=== PATIENT | female | born 1995 | race Caucasian/White ===

== ENCOUNTER 2025-04-22 05:08 | Emergency (ER) | payer OTHER, SELFPAY ==
[2025-04-22 05:24] VITALS: BP 113/67
--- NOTE | 2025-04-22 07:56 | ED.GENMED ---
History of Present Illness
General
Chief Complaint: Musculo-Skeletal Complaint
Source: patient
Exam Limitations: none
Time Seen by Provider: 04/22/25 07:49
History of Present Illness
History of Present Illness:
See MDM
Past History
Past History
ED Past Medical History: None
ED Past Surgical History: None
Social History
Tobacco: Non-smoker
Alcohol: None
Phy Exam
Physical Exam
Physical Exam:
See MDM
Course
Orders/Labs/Results
Orders:
Orders
04/22/25 05:33
Finger(s)/Thumb 2 View Lt [CR Finger(s)/thumb Min 2 Vw Lt] Urgent
Comment:
Reason For Exam: left ring finger injury
Indicate Which Finger:: Ring Finger
04/22/25 07:59
Oxycodone/Acetaminophen [Percocet 5/325] 1 tablet PO NOW STA
Vital Signs
Initial and Last Documented VS:
Initial Vital Signs
Temp Pulse Resp BP Pulse Ox
98.7 F 62 20 113/67 99
04/22/25 05:24 04/22/25 05:24 04/22/25 05:24 04/22/25 05:24 04/22/25 05:24
Last Documented Vital Signs
Temp Pulse Resp BP Pulse Ox
98.7 F 62 20 113/67 99
04/22/25 05:24 04/22/25 05:24 04/22/25 05:24 04/22/25 05:24 04/22/25 07:58
MDM/Problems Addressed
Differential Diagnosis Includes:
Note:
CHIEF COMPLAINT(S)
Finger injury.
HISTORY OF PRESENT ILLNESS
The patient is a 29-year-old female who presents with a finger injury sustained after dropping a 45-pound weight on her fingertip last night. The injury resulted in severe pain. The patient attempted to manage the discomfort by splinting the finger,
although she found applying pressure provided some relief. This morning, she noticed increased swelling and pain. Upon examination during an x-ray, there was a definitive fracture at the tip of the finger with a couple of small cracks observed. The
patient reported pain relief when pressure is applied between her fingers.
PHYSICAL EXAM
General: Alert, no acute distress.
Skin: Warm, dry.
Head: Normocephalic, atraumatic
Neck: Appears supple, trachea midline.
Eyes, Ears, Nose, Mouth, and Throat: Moist mucous membranes
Cardiovascular: No signs of cyanosis
Respiratory: Respirations are non-labored.
Abdomen: Non-distended
Musculoskeletal: Bruising and tenderness noted to left ring finger. Range of motion intact. Decree sensation grossly intact. Subungual hematoma noted
Neurological: No focal neurological deficit observed.
Psychiatric: Cooperative, appropriate mood and affect.
PLAN
- Small hole created in the fingertip to relieve pressure.
- Prescribe oxycodone for home use.
- Use splint for support.
- Educate on signs of infection and when to return to ER.
DIFFERENTIAL DIAGNOSIS
The Differential Diagnosis includes, in no particular order and is not limited to:
- Distal phalanx fracture
- Hematoma under the nailbed
- Soft tissue contusion
- Tendon injury
- Joint dislocation
- Ligament sprain
- Osteomyelitis (secondary to open fracture)
- Crush injury
- Subungual hematoma
- Septic arthritis
SUMMARY OF ENCOUNTER
The patient was evaluated for a finger injury caused by a dumbbell last night. Management included facilitating drainage to relieve pressure, prescribing oxycodone for pain, and advising on the continuation of splint use.
DISPOSITION
Discharge with instructions to return if symptoms worsen.
ASSESSMENT
Distal phalanx fracture with subungual hematoma.
EMERGENCY TREATMENTS ADMINISTERED
Oxycodone given for immediate pain relief.
MEDICATION RECONCILIATION
- Oxycodone prescribed for pain control upon discharge.
- Administered a dose in the emergency department for immediate relief.
MEDICAL DECISION MAKING
- Complexity of Data Reviewed: Chronic conditions affecting care not mentioned.
- Data:
- Category 1: Reviewed x-ray confirming distal phalanx fracture.
- Category 3: Discussion with patient about creating a small hole for drainage.
CRITICAL CARE TIME
I provided 10 minutes of critical care time. Due to a high probability of clinically significant discomfort that required my highest level of intervention to relieve pressure. This time included obtaining history, examining the patient, ordering and
reviewing radiological exams, and administration of emergency medication (oxycodone).
DIAGNOSIS
- S62.609A: Fracture of unspecified phalanx of unspecified finger, initial encounter for closed fracture.
- T79.A12A: Subungual hematoma, initial encounter.
SUMMARY OF ENCOUNTER
This patient presented with a left ring finger injury after a dumbbell fell on her nail bed, resulting in a subungual hematoma. The hematoma was successfully trephinated using cautery, which provided instant relief from pressure and pain. The finger
is neurologically intact. Splinting and return precautions were discussed with the patient. Pain medication was provided, and outpatient follow-up with an web design specialist was discussed.
DISPOSITION
Discharge.
ASSESSMENT
Subungual hematoma and possible distal phalanx fracture of the left ring finger.
EMERGENCY TREATMENTS ADMINISTERED
Trephination of the subungual hematoma with cautery.
PLAN
The patient was advised to continue using a splint for support and to monitor for signs of infection. A referral to an web design specialist was discussed for follow-up care.
PATIENT EDUCATION AND COUNSELING
The patient was educated on the importance of using a splint, recognizing signs of infection, and following up with an web design specialist if symptoms worsen or persist.
FOLLOW-UP INSTRUCTIONS
Follow up with an web design specialist as discussed for further evaluation and management of the finger injury.
MEDICATION RECONCILIATION
Prescribe pain medication, considering patient-specific factors, after reviewing the RxNorm options.
MEDICAL DECISION MAKING
- Number and Complexity of Problems Addressed: Chronic conditions affecting care were not mentioned. The differential diagnosis included distal phalanx fracture, hematoma under the nailbed, soft tissue contusion, and subungual hematoma, among others.
- Data:
Category 1: Reviewed the x-ray confirming the distal phalanx fracture.
Category 3: Discussion of management included plans for outpatient follow-up with orthopedics.
- Risk: Prescription medication was prescribed for pain management. Consideration of Admission/Observation: Escalation of care including admission/observation was considered given the complexity and risk of the patients presenting complaint, exam
findings, and/or their underlying comorbidities. However, ultimately I feel the patient is safe for outpatient management with close follow-up. Reasoning: Work-up reassuring, does not reveal any acute life/organ-threatening processes, patients
symptoms well controlled upon reevaluation, reexamination is reassuring, vitals are stable, patient agreeable with discharge, reliable for follow-up.
CRITICAL CARE TIME
I provided 10 minutes of critical care time. Due to a high probability of clinically significant discomfort that required my highest level of intervention to relieve pressure.
DIAGNOSIS
- S62.609A: Fracture of unspecified phalanx of unspecified finger, initial encounter for closed fracture.
- T79.A12A: Subungual hematoma, initial encounter.
*Pulse Oximetry
SaO2: 99
Oxygen Mode of Delivery: Room air
ED Attending Note
-
Portions of this chart may have been created with voice recognition software.� Occasional wrong word or��sound alike� substitutions may have occurred due to the inherent limitations of voice recognition software.
Discharge Plan
Departure
Patient Disposition: Home (Routine Discharge)
Date of Disposition: 04/22/25
Time of Disposition: 08:14
Patient with high blood pressure during this ER visit?: No
Discharge Problem:
Closed fracture of tuft of distal phalanx of finger, Subungual hematoma of fingernail
Prescriptions:
New
oxycodone 5 mg tablet
2.5 mg PO Q8H PRN (Reason: Pain) Qty: 7 0RF
Referrals:
Niels Irvin MD [Active, Orthopedics]
Harpreet Hanks DO [Family Provider, Family Practice]
Activity Restrictions/Additional Instructions:
Please return for any worsening symptoms.
You may return at any time if you have further concerns.
Please follow up with your doctor at the first available appointment, preferably this week.
Please make an appointment with the orthopedist.
Interventions
Interventions:
*General Assessment Last Done: 04/22/25 05:24
*Neglect/Abuse Screening Last Done: 04/22/25 05:24
*ED COVID-19 Vaccine History Last Done: 04/22/25 05:24
*ED Influenza Vaccine History Last Done: 04/22/25 05:24
*Risk Screen - Suicide (C-SSRS) Last Done: 04/22/25 05:24
Discharge Date and Time
Print Language: [id number]
[2025-04-22] MEDS: PERCOCET 5/325 1 TABLET PO (08:18)
== END 2025-04-22 08:25 | disposition home or self-care (01) ==
LOC: EMR 05:08
PROVIDERS: EMERGENCY PHYSICIAN Student in an Organized Health Care Education/Training Program; FAMILY PHYSICIAN Family Medicine
DX: S60.141A Contusion of right ring finger with damage to nail, initial encounter (principal); S62.635A Displaced fracture of distal phalanx of left ring finger, initial encounter for closed fracture; W20.8XXA Other cause of strike by thrown, projected or falling object, initial encounter
CPT/HCPCS: 11740; 99285; 73140